=== PATIENT | male | born 1935 | race Caucasian/White ===

== ENCOUNTER 2018-01-12 13:16 | Inpatient (IN) ==
[2018-01-12] MEDS: PROPOFOL 1,000 MG/100 ML BOTTLE IV SCH (15:53)
[2018-01-12] MEDS ORDERED: ONDANSETRON 4 MG/2 ML VIAL IV PRN (15:53)
[2018-01-12] MEDS ORDERED: ALBUTEROL 2.5 MG/3 ML NEB RESP TX PRN (15:53)
[2018-01-12] MEDS ORDERED: ACETAMINOPHEN 325 MG TABLET PO PRN (15:53)
[2018-01-12 16:36] LABS: ABG Base Excess -5.3 MMOL/L (-2.5-2.5); ABG HCO3 20.2 MMOL/L (20-26); ABG Oxygen Saturation 99.6 % (95-100); ABG PCO2 45.2 MM HG (35-48); ABG PH 7.287 (7.35-7.45); ABG TCO2 18.9 MMOL/L (23-27); Pt O2 Delivery Device Ventilator
[2018-01-12] MEDS: SODIUM CHLORIDE 0.9% 1,000 ML IV SCH (16:59)
[2018-01-12] MEDS: PANTOPRAZOLE 40 MG VIAL IV SCH (17:00)
[2018-01-12] MEDS: ENOXAPARIN 80 MG/0.8 ML SYRINGE SUBCUT SCH (17:00)
[2018-01-12 17:28] LABS: Albumin 3.5 G/DL (3.4-5.0); Bilirubin,Total 1.5 MG/DL (0.2-1.0); Calcium 8.6 MG/DL (8.5-10.1); Osmolality,Calculated 291.1 MOS/KG (273-304); Potassium 4.1 MMOL/L (3.5-5.1); Total Protein 6.5 G/DL (6.4-8.3)
[2018-01-12 19:17] LABS: Apearance,Urine CLOUDY (Clear); Bilirubin,Urine Negative (Negative); Blood, Urine Large mg/dL (Negative); Glucose,Urine (UA) 50 mg/dL (Negative); Ketones,Urine 5 mg/dL (Negative); Mucus,Urine Occasional /LPF (Occasional); Nitrite,Urine Negative (Negative); Protein,Urine 100 MG/DL; RBC,Urine 27 /HPF (0-4); Squamous Epithelial Cell,Urine Occasional /HPF (0-10); Urine Color Amber (Yellow); Urine Specific Gravity 1.016 (1.001-1.035); Urine Urobilinogen < 2.0 EU/DL (0.2-1.0); WBC,Urine 3 /HPF (0-6)
[2018-01-12] MEDS ORDERED: ENOXAPARIN 30 MG/0.3 ML SYRINGE SUBCUT SCH (21:00)
[2018-01-12] MEDS: fentaNYL INJ 1,250 MCG in SODIUM CHLORIDE 0.9% 225 ML IV PRN (21:38)
[2018-01-13] MEDS: SODIUM CHLORIDE 0.9% 1,000 ML IV SCH ×5 (00:17→12:19)
[2018-01-13] MEDS ORDERED: SODIUM CHLORIDE 0.9% 1,000 ML IV ONE (00:17)
[2018-01-13] MEDS ORDERED: NOREPINEPHRINE 8 MG in SODIUM CHLORIDE 0.9% 242 ML IV PRN (00:18)
[2018-01-13 03:40] LABS: ABG Base Excess -2.7 MMOL/L (-2.5-2.5); ABG HCO3 22.2 MMOL/L (20-26); ABG Oxygen Saturation 98.9 % (95-100); ABG PCO2 46.4 MM HG (35-48); ABG PH 7.318 (7.35-7.45)
[2018-01-13] MEDS: ENOXAPARIN 80 MG/0.8 ML SYRINGE SUBCUT SCH ×2 (04:43→16:05)
[2018-01-13 05:29] LABS: Basophils % 0.2 % (0.0-0.8); Hematocrit 39.6 VOL% (42.0-52.0); Hemoglobin 12.9 GM/DL (14.0-18.0); Immature Granulocytes % 0.6 %; Immature Granulocytes Absolute 0.06 #; Lymphocytes % 10.7 % (21.2-54.2); Mean Corpuscular HGB Conc 32.6 GM/DL (32-36); Mean Corpuscular Hemoglobin 32 PG (27-34); Mean Corpuscular Volume 96.8 FL (87-102); Mean Platelet Volume 11.1 FL (9.6-12.0); Monocytes # 0.7 10*3/uL (0.11-0.8); Monocytes % 7.8 % (1.7-12.7); Neutrophils # 7.6 10*3/uL (1.4-7.4); Neutrophils % 80.7 % (38.7-73.9); Platelet Count 139 T/CUMM (130-400); Red Blood Count 4.09 MC/CUMM (3.8-5.5); Red Cell Distribution Width 13.3 % (9.3-17.3); White Blood Count 9.4 T/CUMM (4-12)
[2018-01-13 06:06] LABS: Albumin 2.9 G/DL (3.4-5.0); Bilirubin,Total 1.5 MG/DL (0.2-1.0); Calcium 7.7 MG/DL (8.5-10.1); Osmolality,Calculated 291.7 MOS/KG (273-304); Potassium 5.5 MMOL/L (3.5-5.1); Risk Ratio 4.08; Total Protein 5.9 G/DL (6.4-8.3); Troponin I Only 3.11 NG/ML (0.00-0.045); VLDL CHOLESTEROL 18.2 MG/DL
[2018-01-13 10:49] LABS: CKMB % 1.9 %
[2018-01-13 10:51] LABS: Troponin I Only 2.51 NG/ML (0.00-0.045)
[2018-01-13] MEDS: fentaNYL INJ 1,250 MCG in SODIUM CHLORIDE 0.9% 225 ML IV PRN (12:15)
[2018-01-13] MEDS: DEXTROSE 5% NACL 0.45% 1,000 ML IV SCH ×2 (12:22→22:37)
[2018-01-13] MEDS: ASPIRIN EC 81 MG TABLET PO SCH (12:26)
[2018-01-13] MEDS ORDERED: DEXTROSE 50% 25 GM/50 ML VIAL IV PRN (14:36)
[2018-01-13] MEDS ORDERED: GLUCAGON 1 MG VIAL IM PRN (14:36)
[2018-01-13 14:56] LABS: Calcium 7.4 MG/DL (8.5-10.1); Osmolality,Calculated 290.8 MOS/KG (273-304); Potassium 4.7 MMOL/L (3.5-5.1)
[2018-01-13] MEDS: PANTOPRAZOLE 40 MG VIAL IV SCH (16:03)
[2018-01-13] MEDS: PROPOFOL 1,000 MG/100 ML BOTTLE IV SCH (16:17)
[2018-01-13] MEDS: CLINDAMYCIN INJ 600 MG in PREMIX 1 EACH IV SCH (16:21)
[2018-01-13] MEDS: INSULIN REGULAR 100 UNIT/ML SUBCUT SCH (18:40)
[2018-01-14] MEDS: INSULIN REGULAR 100 UNIT/ML SUBCUT SCH ×2 (01:15→06:14)
[2018-01-14] MEDS: CLINDAMYCIN INJ 600 MG in PREMIX 1 EACH IV SCH ×3 (01:41→16:13)
[2018-01-14 04:14] LABS: ABG Base Excess -0.1 MMOL/L (-2.5-2.5); ABG HCO3 24.4 MMOL/L (20-26); ABG Oxygen Saturation 98.8 % (95-100); ABG PCO2 45.8 MM HG (35-48); ABG PH 7.358 (7.35-7.45); ABG TCO2 23.1 MMOL/L (23-27); Allen Test Positive; Pt O2 Delivery Device Ventilator
[2018-01-14] MEDS: fentaNYL INJ 1,250 MCG in SODIUM CHLORIDE 0.9% 225 ML IV PRN ×2 (04:39→20:06)
[2018-01-14 05:12] LABS: Basophils % 0.2 % (0.0-0.8); Eosinophils % 0.1 % (0.00-10.9); Hematocrit 33.8 VOL% (42.0-52.0); Hemoglobin 11.3 GM/DL (14.0-18.0); Immature Granulocytes % 0.4 %; Immature Granulocytes Absolute 0.03 #; Lymphocytes # 1.1 10*3/uL (1.4-4.0); Lymphocytes % 13.5 % (21.2-54.2); Mean Corpuscular HGB Conc 33.4 GM/DL (32-36); Mean Corpuscular Hemoglobin 32 PG (27-34); Mean Corpuscular Volume 96.6 FL (87-102); Mean Platelet Volume 11.8 FL (9.6-12.0); Monocytes # 0.8 10*3/uL (0.11-0.8); Monocytes % 9.8 % (1.7-12.7); Neutrophils # 6.2 10*3/uL (1.4-7.4); Platelet Count 124 T/CUMM (130-400); Red Cell Distribution Width 13.8 % (9.3-17.3); White Blood Count 8.2 T/CUMM (4-12)
[2018-01-14 05:42] LABS: Giant Platelets Few; Hypochromasia 1+; Lymphocytes 14 % (20-55); Ovalocytes Slight; Platelet Estimate Decreased; Segmented Neutrophils 78 % (50-85); Total Cells Counted 100
[2018-01-14 05:47] LABS: Albumin 2.6 G/DL (3.4-5.0); Bilirubin,Total 1.6 MG/DL (0.2-1.0); Calcium 7.6 MG/DL (8.5-10.1); Potassium 4.4 MMOL/L (3.5-5.1); Prealbumin 15.8 MG/DL (20-40); Total Protein 5.4 G/DL (6.4-8.3)
[2018-01-14] MEDS: ENOXAPARIN 80 MG/0.8 ML SYRINGE SUBCUT SCH ×2 (06:18→16:12)
[2018-01-14] MEDS: DEXTROSE 5% NACL 0.45% 1,000 ML IV SCH ×4 (08:01→16:45)
[2018-01-14] MEDS: ASPIRIN EC 81 MG TABLET PO SCH (11:05)
[2018-01-14] MEDS: PANTOPRAZOLE 40 MG VIAL IV SCH (16:00)
[2018-01-14] MEDS: PROPOFOL 1,000 MG/100 ML BOTTLE IV SCH (16:46)
[2018-01-14] MEDS: CARVEDILOL 3.125 MG TABLET PO SCH (20:15)
[2018-01-15] MEDS: CLINDAMYCIN INJ 600 MG in PREMIX 1 EACH IV SCH ×3 (00:50→17:18)
[2018-01-15] MEDS: DEXTROSE 5% NACL 0.45% 1,000 ML IV SCH ×5 (02:53→22:55)
[2018-01-15] MEDS: PROPOFOL 1,000 MG/100 ML BOTTLE IV SCH ×2 (03:31→15:52)
[2018-01-15] MEDS: ENOXAPARIN 80 MG/0.8 ML SYRINGE SUBCUT SCH ×2 (04:39→17:12)
[2018-01-15 06:07] LABS: Basophils % 0.2 % (0.0-0.8); Eosinophils # 0.1 10*3/uL (0.0-0.87); Eosinophils % 0.6 % (0.00-10.9); Hemoglobin 11.4 GM/DL (14.0-18.0); Immature Granulocytes % 0.6 %; Immature Granulocytes Absolute 0.05 #; Lymphocytes # 1.4 10*3/uL (1.4-4.0); Lymphocytes % 17.2 % (21.2-54.2); Mean Corpuscular HGB Conc 31.7 GM/DL (32-36); Mean Corpuscular Hemoglobin 32 PG (27-34); Mean Corpuscular Volume 100.6 FL (87-102); Mean Platelet Volume 12.2 FL (9.6-12.0); Monocytes # 0.8 10*3/uL (0.11-0.8); Monocytes % 10.4 % (1.7-12.7); Neutrophils # 5.8 10*3/uL (1.4-7.4); Platelet Count 105 T/CUMM (130-400); Red Blood Count 3.58 MC/CUMM (3.8-5.5); Red Cell Distribution Width 13.2 % (9.3-17.3); White Blood Count 8.1 T/CUMM (4-12)
[2018-01-15 06:46] LABS: Albumin 2.5 G/DL (3.4-5.0); Bilirubin,Total 1.7 MG/DL (0.2-1.0); Calcium 7.7 MG/DL (8.5-10.1); Osmolality,Calculated 282.3 MOS/KG (273-304); Potassium 4.1 MMOL/L (3.5-5.1); Total Protein 5.4 G/DL (6.4-8.3)
[2018-01-15] MEDS: ASPIRIN EC 81 MG TABLET PO SCH (08:40)
[2018-01-15] MEDS: CARVEDILOL 3.125 MG TABLET PO SCH ×2 (12:34→22:25)
[2018-01-15] MEDS ORDERED: hydrALAZINE 20 MG/1 ML VIAL IV PRN (12:36)
[2018-01-15] MEDS: PANTOPRAZOLE 40 MG VIAL IV SCH (17:11)
[2018-01-16] MEDS: CLINDAMYCIN INJ 600 MG in PREMIX 1 EACH IV SCH ×3 (00:34→15:50)
[2018-01-16 03:45] LABS: ABG Base Excess 0.7 MMOL/L (-2.5-2.5); ABG HCO3 25.1 MMOL/L (20-26); ABG Oxygen Saturation 99.4 % (95-100); ABG PH 7.402 (7.35-7.45); ABG TCO2 23.1 MMOL/L (23-27); Allen Test Positive; Pt O2 Delivery Device Ventilator
[2018-01-16] MEDS: PROPOFOL 1,000 MG/100 ML BOTTLE IV SCH ×3 (03:51→20:17)
[2018-01-16] MEDS: ENOXAPARIN 80 MG/0.8 ML SYRINGE SUBCUT SCH ×2 (04:33→15:51)
[2018-01-16 04:39] LABS: Basophils % 0.4 % (0.0-0.8); Eosinophils # 0.1 10*3/uL (0.0-0.87); Eosinophils % 1.2 % (0.00-10.9); Hematocrit 31.9 VOL% (42.0-52.0); Hemoglobin 10.9 GM/DL (14.0-18.0); Immature Granulocytes % 0.7 %; Immature Granulocytes Absolute 0.04 #; Lymphocytes # 1.1 10*3/uL (1.4-4.0); Lymphocytes % 19.6 % (21.2-54.2); Mean Corpuscular HGB Conc 34.2 GM/DL (32-36); Mean Corpuscular Hemoglobin 32 PG (27-34); Mean Corpuscular Volume 94.9 FL (87-102); Mean Platelet Volume 12.7 FL (9.6-12.0); Monocytes # 0.8 10*3/uL (0.11-0.8); Monocytes % 14.4 % (1.7-12.7); Neutrophils # 3.6 10*3/uL (1.4-7.4); Neutrophils % 63.7 % (38.7-73.9); Red Blood Count 3.36 MC/CUMM (3.8-5.5); Red Cell Distribution Width 13.2 % (9.3-17.3); White Blood Count 5.7 T/CUMM (4-12)
[2018-01-16 05:01] LABS: Platelet Count 95 T/CUMM (130-400)
[2018-01-16 05:06] LABS: Albumin 2.2 G/DL (3.4-5.0); Bilirubin,Direct 0.9 MG/DL (0.0-0.20); Bilirubin,Indirect 1.2 MG/DL (0.0-1.0); Bilirubin,Total 2.1 MG/DL (0.2-1.0); Calcium 7.9 MG/DL (8.5-10.1); Osmolality,Calculated 283.1 MOS/KG (273-304); Potassium 3.5 MMOL/L (3.5-5.1); Total Protein 5.3 G/DL (6.4-8.3)
[2018-01-16] MEDS: ASPIRIN EC 81 MG TABLET PO SCH (09:02)
[2018-01-16] MEDS: CARVEDILOL 3.125 MG TABLET PO SCH (09:02)
[2018-01-16] MEDS: DEXTROSE 5% NACL 0.45% 1,000 ML IV SCH ×3 (09:03→20:27)
[2018-01-16] MEDS ORDERED: ATORVASTATIN 20 MG TABLET PO SCH (13:30)
[2018-01-16] MEDS: PANTOPRAZOLE 40 MG VIAL IV SCH (15:50)
[2018-01-16] MEDS: ATORVASTATIN 20 MG TABLET PO SCH (21:11)
[2018-01-17] MEDS: CLINDAMYCIN INJ 600 MG in PREMIX 1 EACH IV SCH ×3 (00:34→17:03)
[2018-01-17 03:39] LABS: ABG Base Excess 3.1 MMOL/L (-2.5-2.5); ABG HCO3 27.8 MMOL/L (20-26); ABG Oxygen Saturation 98.4 % (95-100); ABG PCO2 42.7 MM HG (35-48); ABG PH 7.431 (7.35-7.45); ABG PO2 151.1 MM HG (80-95); ABG TCO2 29.1 MMOL/L (23-27)
[2018-01-17] MEDS: DEXTROSE 5% NACL 0.45% 1,000 ML IV SCH ×4 (04:06→20:46)
[2018-01-17] MEDS: ENOXAPARIN 80 MG/0.8 ML SYRINGE SUBCUT SCH ×2 (05:07→17:03)
[2018-01-17] MEDS: PROPOFOL 1,000 MG/100 ML BOTTLE IV SCH ×4 (05:27→20:46)
[2018-01-17 06:06] LABS: Basophils % 0.8 % (0.0-0.8); Eosinophils # 0.2 10*3/uL (0.0-0.87); Eosinophils % 4.1 % (0.00-10.9); Hematocrit 30.3 VOL% (42.0-52.0); Hemoglobin 10.8 GM/DL (14.0-18.0); Immature Granulocytes % 4.1 %; Immature Granulocytes Absolute 0.21 #; Lymphocytes # 0.6 10*3/uL (1.4-4.0); Lymphocytes % 11.5 % (21.2-54.2); Mean Corpuscular HGB Conc 35.6 GM/DL (32-36); Mean Corpuscular Hemoglobin 33 PG (27-34); Mean Corpuscular Volume 93.2 FL (87-102); Mean Platelet Volume 11.8 FL (9.6-12.0); Monocytes # 0.8 10*3/uL (0.11-0.8); Monocytes % 14.6 % (1.7-12.7); Neutrophils # 3.4 10*3/uL (1.4-7.4); Neutrophils % 64.9 % (38.7-73.9); Platelet Count 173 T/CUMM (130-400); Red Blood Count 3.25 MC/CUMM (3.8-5.5); Red Cell Distribution Width 13.2 % (9.3-17.3); White Blood Count 5.2 T/CUMM (4-12)
[2018-01-17 06:40] LABS: Band Neutrophils 3 % (0-10); Eosinophils 2 % (0-10); Hypochromasia 1+; Lymphocytes 12 % (20-55); Myelocytes 2 %; Ovalocytes Slight; Platelet Estimate Normal; Segmented Neutrophils 69 % (50-85); Total Cells Counted 100
[2018-01-17 06:55] LABS: Calcium 7.5 MG/DL (8.5-10.1); Potassium 3.4 MMOL/L (3.5-5.1)
[2018-01-17] MEDS: LEVOFLOXACIN INJ 500 MG in PREMIX 1 EACH IV SCH (09:19)
[2018-01-17 09:20] LABS: ABG Base Excess 2.7 MMOL/L (-2.5-2.5); ABG HCO3 26.8 MMOL/L (20-26); ABG Oxygen Saturation 99.2 % (95-100); ABG PCO2 42.8 MM HG (35-48); ABG PH 7.417 (7.35-7.45); ABG TCO2 24.7 MMOL/L (23-27); Allen Test Positive; Pt O2 Delivery Device CPAP
[2018-01-17] MEDS: ASPIRIN EC 81 MG TABLET PO SCH (09:21)
[2018-01-17] MEDS ORDERED: POTASSIUM CHLORIDE RIDER 10 MEQ in PREMIX 1 EACH IV PRN (10:24)
[2018-01-17] MEDS ORDERED: MAGNESIUM SULF RIDER 2 GM in PREMIX 1 EACH IV PRN (10:24)
[2018-01-17] MEDS ORDERED: RACEPINEPHRINE 0.5 ML NEB RESP TX ONE (10:33)
[2018-01-17 10:57] LABS: ABG Base Excess 3.1 MMOL/L (-2.5-2.5); ABG HCO3 29.8 MMOL/L (20-26); ABG Oxygen Saturation 98.9 % (95-100); ABG PCO2 55.8 MM HG (35-48); ABG PH 7.346 (7.35-7.45); ABG PO2 197.4 MM HG (80-95); ABG TCO2 31.6 MMOL/L (23-27)
[2018-01-17] MEDS ORDERED: methylPREDNISolone SOD SUC 40 MG/1 ML VIAL IV ONE (11:25)
[2018-01-17] MEDS ORDERED: MIDAZOLAM 10 MG/2 ML VIAL ONE (11:30)
[2018-01-17] MEDS ORDERED: MIDAZOLAM 10 MG/2 ML VIAL IV ONE (11:42)
[2018-01-17] MEDS ORDERED: LIDOCAINE 1% 20 ML VIAL MISC INJ ONE (11:50)
[2018-01-17] MEDS: VALSARTAN 80 MG TABLET PO SCH ×2 (13:39→21:19)
[2018-01-17 13:43] LABS: ABG HCO3 27.1 MMOL/L (20-26); ABG Oxygen Saturation 99.3 % (95-100); ABG PCO2 45.6 MM HG (35-48); ABG PH 7.402 (7.35-7.45); ABG TCO2 25.5 MMOL/L (23-27); Allen Test Positive; Pt O2 Delivery Device Ventilator
[2018-01-17] MEDS: PANTOPRAZOLE 40 MG VIAL IV SCH (17:03)
[2018-01-17] MEDS: methylPREDNISolone SOD SUC 40 MG/1 ML VIAL IV SCH (17:03)
[2018-01-17] MEDS: ATORVASTATIN 20 MG TABLET PO SCH (21:19)
[2018-01-18] MEDS: DEXTROSE 5% NACL 0.45% 1,000 ML IV SCH ×5 (00:24→19:32)
[2018-01-18] MEDS: methylPREDNISolone SOD SUC 40 MG/1 ML VIAL IV SCH ×5 (00:30→23:48)
[2018-01-18] MEDS: CLINDAMYCIN INJ 600 MG in PREMIX 1 EACH IV SCH ×4 (00:32→23:52)
[2018-01-18] MEDS: PROPOFOL 1,000 MG/100 ML BOTTLE IV SCH ×5 (02:31→21:38)
[2018-01-18 03:20] LABS: Basophils % 0.3 % (0.0-0.8); Hemoglobin 10.3 GM/DL (14.0-18.0); Immature Granulocytes % 4.1 %; Immature Granulocytes Absolute 0.31 #; Lymphocytes # 0.6 10*3/uL (1.4-4.0); Mean Corpuscular HGB Conc 33.2 GM/DL (32-36); Mean Corpuscular Hemoglobin 32 PG (27-34); Mean Corpuscular Volume 95.1 FL (87-102); Mean Platelet Volume 11.7 FL (9.6-12.0); Monocytes # 0.3 10*3/uL (0.11-0.8); Monocytes % 3.5 % (1.7-12.7); Neutrophils # 6.3 10*3/uL (1.4-7.4); Neutrophils % 84.1 % (38.7-73.9); Platelet Count 183 T/CUMM (130-400); Red Blood Count 3.26 MC/CUMM (3.8-5.5); Red Cell Distribution Width 12.9 % (9.3-17.3); White Blood Count 7.5 T/CUMM (4-12)
[2018-01-18 03:48] LABS: Calcium 7.9 MG/DL (8.5-10.1); Osmolality,Calculated 291.1 MOS/KG (273-304); Potassium 3.7 MMOL/L (3.5-5.1)
[2018-01-18 04:28] LABS: ABG Base Excess 2.2 MMOL/L (-2.5-2.5); ABG HCO3 26.4 MMOL/L (20-26); ABG PH 7.401 (7.35-7.45); ABG TCO2 24.5 MMOL/L (23-27)
[2018-01-18 04:31] LABS: Prealbumin 10.4 MG/DL (20-40)
[2018-01-18 04:42] LABS: Lymphocytes 6 % (20-55); Segmented Neutrophils 88 % (50-85); Total Cells Counted 100
[2018-01-18 04:43] LABS: Giant Platelets Few; Hypochromasia 1+; Ovalocytes Slight; Platelet Estimate Normal; Polychromasia Few
[2018-01-18] MEDS: ENOXAPARIN 80 MG/0.8 ML SYRINGE SUBCUT SCH ×2 (05:34→16:27)
[2018-01-18] MEDS: amLODIPine 2.5 MG TABLET PO SCH (10:33)
[2018-01-18] MEDS: ASPIRIN EC 81 MG TABLET PO SCH (10:34)
[2018-01-18] MEDS: LEVOFLOXACIN INJ 500 MG in PREMIX 1 EACH IV SCH (10:34)
[2018-01-18] MEDS: VALSARTAN 80 MG TABLET PO SCH ×2 (10:52→21:04)
[2018-01-18] MEDS: INSULIN REGULAR 100 UNIT/ML SUBCUT SCH ×3 (12:56→23:50)
[2018-01-18] MEDS: PANTOPRAZOLE 40 MG VIAL IV SCH (16:27)
[2018-01-18] MEDS: ATORVASTATIN 20 MG TABLET PO SCH (21:04)
[2018-01-19] MEDS: DEXTROSE 5% NACL 0.45% 1,000 ML IV SCH ×5 (02:38→22:00)
[2018-01-19] MEDS: PROPOFOL 1,000 MG/100 ML BOTTLE IV SCH ×5 (02:38→19:59)
[2018-01-19 04:34] LABS: Allen Test Positive; Pt O2 Delivery Device Ventilator
[2018-01-19 04:35] LABS: ABG Base Excess 5.1 MMOL/L (-2.5-2.5); ABG HCO3 30.2 MMOL/L (20-26); ABG Oxygen Saturation 98.4 % (95-100); ABG PCO2 46.8 MM HG (35-48); ABG PH 7.428 (7.35-7.45); ABG PO2 145.3 MM HG (80-95); ABG TCO2 31.7 MMOL/L (23-27)
[2018-01-19 04:46] LABS: Basophils % 0.3 % (0.0-0.8); Hematocrit 30.9 VOL% (42.0-52.0); Hemoglobin 10.5 GM/DL (14.0-18.0); Immature Granulocytes % 6.2 %; Lymphocytes # 0.8 10*3/uL (1.4-4.0); Lymphocytes % 5.8 % (21.2-54.2); Mean Corpuscular Hemoglobin 32 PG (27-34); Mean Corpuscular Volume 92.8 FL (87-102); Mean Platelet Volume 11.7 FL (9.6-12.0); Monocytes # 0.9 10*3/uL (0.11-0.8); Monocytes % 6.9 % (1.7-12.7); Neutrophils # 10.5 10*3/uL (1.4-7.4); Neutrophils % 80.8 % (38.7-73.9); Platelet Count 242 T/CUMM (130-400); Red Blood Count 3.33 MC/CUMM (3.8-5.5); Red Cell Distribution Width 13.3 % (9.3-17.3)
[2018-01-19 05:10] LABS: Band Neutrophils 3 % (0-10); Lymphocytes 3 % (20-55); Platelet Estimate Adequate; Segmented Neutrophils 91 % (50-85); Total Cells Counted 100
[2018-01-19 05:11] LABS: Giant Platelets Few; Hypochromasia 1+; Ovalocytes Slight
[2018-01-19 05:22] LABS: Calcium 7.7 MG/DL (8.5-10.1)
[2018-01-19] MEDS: INSULIN REGULAR 100 UNIT/ML SUBCUT SCH ×3 (05:51→18:03)
[2018-01-19] MEDS: ENOXAPARIN 80 MG/0.8 ML SYRINGE SUBCUT SCH (05:51)
[2018-01-19] MEDS: methylPREDNISolone SOD SUC 40 MG/1 ML VIAL IV SCH ×3 (05:52→18:05)
[2018-01-19] MEDS: LEVOFLOXACIN INJ 500 MG in PREMIX 1 EACH IV SCH (08:49)
[2018-01-19] MEDS: ASPIRIN EC 81 MG TABLET PO SCH (08:54)
[2018-01-19] MEDS: VALSARTAN 80 MG TABLET PO SCH ×2 (08:54→20:01)
[2018-01-19] MEDS: MULTIVITAMIN LIQUID (CENTRUM) 60 ML BOTTLE PO SCH (08:54)
[2018-01-19] MEDS: amLODIPine 2.5 MG TABLET PO SCH (08:54)
[2018-01-19] MEDS: CLINDAMYCIN INJ 600 MG in PREMIX 1 EACH IV SCH ×2 (09:50→16:06)
[2018-01-19] MEDS ORDERED: HEPARIN/NACL 0.9% 2 UNITS/ML 1,000 ML IV ONE (11:53)
[2018-01-19] MEDS ORDERED: ACETAMINOPHEN/CODEINE 300-30 MG TABLET PO PRN (13:56)
[2018-01-19] MEDS ORDERED: MORPHINE 4 MG/1 ML VIAL IV PRN (13:56)
[2018-01-19] MEDS: PANTOPRAZOLE 40 MG VIAL IV SCH (15:31)
[2018-01-19] MEDS: ROSUVASTATIN 20 MG TABLET PO SCH (20:01)
[2018-01-19] MEDS: ATORVASTATIN 20 MG TABLET PO SCH (20:02)
[2018-01-20] MEDS: CLINDAMYCIN INJ 600 MG in PREMIX 1 EACH IV SCH ×3 (00:14→16:20)
[2018-01-20] MEDS: methylPREDNISolone SOD SUC 40 MG/1 ML VIAL IV SCH ×3 (00:14→12:04)
[2018-01-20] MEDS: INSULIN REGULAR 100 UNIT/ML SUBCUT SCH ×4 (00:14→17:22)
[2018-01-20] MEDS: PROPOFOL 1,000 MG/100 ML BOTTLE IV SCH ×4 (00:21→23:02)
[2018-01-20 04:23] LABS: ABG Base Excess 5.2 MMOL/L (-2.5-2.5); ABG HCO3 29.1 MMOL/L (20-26); ABG Oxygen Saturation 97.4 % (95-100); ABG PCO2 44.2 MM HG (35-48); ABG TCO2 26.9 MMOL/L (23-27); Allen Test Positive; Pt O2 Delivery Device Ventilator
[2018-01-20] MEDS: ENOXAPARIN 80 MG/0.8 ML SYRINGE SUBCUT SCH ×2 (04:42→16:21)
[2018-01-20 05:25] LABS: Basophils # 0.1 10*3/uL (0.0-0.2); Basophils % 0.8 % (0.0-0.8); Hematocrit 33.7 VOL% (42.0-52.0); Hemoglobin 11.4 GM/DL (14.0-18.0); Immature Granulocytes % 9.5 %; Immature Granulocytes Absolute 1.16 #; Lymphocytes # 1.1 10*3/uL (1.4-4.0); Lymphocytes % 9.2 % (21.2-54.2); Mean Corpuscular HGB Conc 33.8 GM/DL (32-36); Mean Corpuscular Hemoglobin 32 PG (27-34); Mean Corpuscular Volume 94.4 FL (87-102); Mean Platelet Volume 11.7 FL (9.6-12.0); Monocytes # 0.9 10*3/uL (0.11-0.8); Monocytes % 7.3 % (1.7-12.7); NRBC # 0.02 10*3/uL; Neutrophils # 8.9 10*3/uL (1.4-7.4); Neutrophils % 73.2 % (38.7-73.9); Platelet Count 261 T/CUMM (130-400); Red Blood Count 3.57 MC/CUMM (3.8-5.5); Red Cell Distribution Width 13.2 % (9.3-17.3); White Blood Count 12.2 T/CUMM (4-12)
[2018-01-20 05:44] LABS: Band Neutrophils 5 % (0-10); Lymphocytes 11 % (20-55); Segmented Neutrophils 78 % (50-85); Total Cells Counted 100
[2018-01-20 05:45] LABS: Giant Platelets Few; Hypochromasia 1+; Ovalocytes Slight; Platelet Estimate Adequate
[2018-01-20 05:50] LABS: Calcium 7.7 MG/DL (8.5-10.1)
[2018-01-20 05:51] LABS: Osmolality,Calculated 293.1 MOS/KG (273-304); Potassium 4.4 MMOL/L (3.5-5.1)
[2018-01-20] MEDS: ASPIRIN EC 81 MG TABLET PO SCH (08:04)
[2018-01-20] MEDS: VALSARTAN 80 MG TABLET PO SCH ×2 (08:04→20:26)
[2018-01-20] MEDS: amLODIPine 2.5 MG TABLET PO SCH (08:04)
[2018-01-20] MEDS: DEXTROSE 5% NACL 0.45% 1,000 ML IV SCH ×2 (08:05→18:14)
[2018-01-20] MEDS: MULTIVITAMIN LIQUID (CENTRUM) 60 ML BOTTLE PO SCH (08:05)
[2018-01-20] MEDS: LEVOFLOXACIN INJ 500 MG in PREMIX 1 EACH IV SCH (08:06)
[2018-01-20] MEDS: PANTOPRAZOLE 40 MG VIAL IV SCH (16:21)
[2018-01-20] MEDS: ROSUVASTATIN 20 MG TABLET PO SCH (20:26)
[2018-01-21] MEDS: INSULIN REGULAR 100 UNIT/ML SUBCUT SCH ×4 (00:21→17:17)
[2018-01-21] MEDS: CLINDAMYCIN INJ 600 MG in PREMIX 1 EACH IV SCH ×3 (00:21→16:09)
[2018-01-21 03:50] LABS: ABG HCO3 31.6 MMOL/L (20-26); ABG Oxygen Saturation 98.3 % (95-100); ABG PCO2 45.2 MM HG (35-48); ABG PH 7.463 (7.35-7.45); ABG PO2 133.8 MM HG (80-95); Allen Test Positive; Pt O2 Delivery Device Ventilator
[2018-01-21] MEDS: DEXTROSE 5% NACL 0.45% 1,000 ML IV SCH ×3 (04:47→16:08)
[2018-01-21] MEDS: ENOXAPARIN 80 MG/0.8 ML SYRINGE SUBCUT SCH ×2 (05:52→16:10)
[2018-01-21 06:58] LABS: Prealbumin 22.1 MG/DL (20-40)
[2018-01-21] MEDS: VALSARTAN 80 MG TABLET PO SCH ×2 (08:19→21:03)
[2018-01-21] MEDS: LEVOFLOXACIN INJ 500 MG in PREMIX 1 EACH IV SCH (08:19)
[2018-01-21] MEDS: amLODIPine 5 MG TABLET PO SCH (08:20)
[2018-01-21] MEDS: MULTIVITAMIN LIQUID (CENTRUM) 60 ML BOTTLE PO SCH (08:20)
[2018-01-21] MEDS: ASPIRIN EC 81 MG TABLET PO SCH (08:20)
[2018-01-21] MEDS: FLUCONAZOLE INJ 200 MG in PREMIX 1 EACH IV SCH (16:08)
[2018-01-21] MEDS: PANTOPRAZOLE 40 MG VIAL IV SCH (16:09)
[2018-01-21] MEDS: PROPOFOL 1,000 MG/100 ML BOTTLE IV SCH (16:09)
[2018-01-21] MEDS: ROSUVASTATIN 20 MG TABLET PO SCH (21:03)
[2018-01-22] MEDS: INSULIN REGULAR 100 UNIT/ML SUBCUT SCH ×3 (01:02→12:17)
[2018-01-22] MEDS: CLINDAMYCIN INJ 600 MG in PREMIX 1 EACH IV SCH ×3 (01:03→16:10)
[2018-01-22] MEDS: DEXTROSE 5% NACL 0.45% 1,000 ML IV SCH ×5 (01:04→20:52)
[2018-01-22 04:36] LABS: Basophils # 0.1 10*3/uL (0.0-0.2); Basophils % 0.5 % (0.0-0.8); Eosinophils # 0.1 10*3/uL (0.0-0.87); Hematocrit 36.7 VOL% (42.0-52.0); Hemoglobin 12.6 GM/DL (14.0-18.0); Immature Granulocytes % 7.3 %; Immature Granulocytes Absolute 0.95 #; Lymphocytes # 1.4 10*3/uL (1.4-4.0); Lymphocytes % 10.5 % (21.2-54.2); Mean Corpuscular HGB Conc 34.3 GM/DL (32-36); Mean Corpuscular Hemoglobin 32 PG (27-34); Mean Corpuscular Volume 91.8 FL (87-102); Mean Platelet Volume 10.9 FL (9.6-12.0); Monocytes % 7.3 % (1.7-12.7); NRBC # 0.02 10*3/uL; Neutrophils # 9.5 10*3/uL (1.4-7.4); Neutrophils % 73.4 % (38.7-73.9); Platelet Count 318 T/CUMM (130-400); Red Cell Distribution Width 13.1 % (9.3-17.3)
[2018-01-22 05:02] LABS: Giant Platelets Few; Hypochromasia 1+; Lymphocytes 10 % (20-55); Platelet Estimate Adequate; Segmented Neutrophils 82 % (50-85); Total Cells Counted 100
[2018-01-22 05:03] LABS: Calcium 7.6 MG/DL (8.5-10.1); Osmolality,Calculated 286.1 MOS/KG (273-304); Potassium 4.2 MMOL/L (3.5-5.1)
[2018-01-22] MEDS: ENOXAPARIN 80 MG/0.8 ML SYRINGE SUBCUT SCH (05:55)
[2018-01-22] MEDS: ASPIRIN EC 81 MG TABLET PO SCH (08:32)
[2018-01-22] MEDS: VALSARTAN 80 MG TABLET PO SCH ×2 (08:32→20:42)
[2018-01-22] MEDS: MULTIVITAMIN LIQUID (CENTRUM) 60 ML BOTTLE PO SCH (08:33)
[2018-01-22] MEDS: amLODIPine 5 MG TABLET PO SCH (08:33)
[2018-01-22] MEDS: LEVOFLOXACIN INJ 500 MG in PREMIX 1 EACH IV SCH (08:34)
[2018-01-22] MEDS: FLUCONAZOLE INJ 200 MG in PREMIX 1 EACH IV SCH (15:00)
[2018-01-22] MEDS: PANTOPRAZOLE 40 MG VIAL IV SCH (15:55)
[2018-01-22] MEDS: APIXABAN 5 MG TABLET PO SCH (20:42)
[2018-01-22] MEDS: ROSUVASTATIN 20 MG TABLET PO SCH (20:42)
[2018-01-23] MEDS: CLINDAMYCIN INJ 600 MG in PREMIX 1 EACH IV SCH ×3 (00:47→18:02)
[2018-01-23 04:45] LABS: Basophils % 0.3 % (0.0-0.8); Eosinophils # 0.2 10*3/uL (0.0-0.87); Hematocrit 36.1 VOL% (42.0-52.0); Hemoglobin 12.4 GM/DL (14.0-18.0); Immature Granulocytes % 4.4 %; Immature Granulocytes Absolute 0.49 #; Lymphocytes # 1.1 10*3/uL (1.4-4.0); Lymphocytes % 10.1 % (21.2-54.2); Mean Corpuscular HGB Conc 34.3 GM/DL (32-36); Mean Corpuscular Hemoglobin 32 PG (27-34); Mean Corpuscular Volume 92.3 FL (87-102); Mean Platelet Volume 10.9 FL (9.6-12.0); Monocytes # 0.8 10*3/uL (0.11-0.8); Neutrophils # 8.6 10*3/uL (1.4-7.4); Neutrophils % 76.2 % (38.7-73.9); Platelet Count 324 T/CUMM (130-400); Red Blood Count 3.91 MC/CUMM (3.8-5.5); White Blood Count 11.2 T/CUMM (4-12)
[2018-01-23] MEDS ORDERED: LACTULOSE 20 GM/30 ML UDCUP PO PRN (05:19)
[2018-01-23] MEDS: LEVOFLOXACIN INJ 500 MG in PREMIX 1 EACH IV SCH (06:45)
[2018-01-23] MEDS: DEXTROSE 5% NACL 0.45% 1,000 ML IV SCH (07:04)
[2018-01-23] MEDS: VALSARTAN 80 MG TABLET PO SCH ×2 (09:03→20:55)
[2018-01-23] MEDS: amLODIPine 5 MG TABLET PO SCH (09:04)
[2018-01-23] MEDS: APIXABAN 5 MG TABLET PO SCH ×2 (09:04→20:55)
[2018-01-23] MEDS: ASPIRIN EC 81 MG TABLET PO SCH (09:04)
[2018-01-23] MEDS: MULTIVITAMIN LIQUID (CENTRUM) 60 ML BOTTLE PO SCH (09:14)
[2018-01-23] MEDS: PANTOPRAZOLE 40 MG VIAL IV SCH (16:43)
[2018-01-23] MEDS: FLUCONAZOLE INJ 200 MG in PREMIX 1 EACH IV SCH (17:04)
[2018-01-23] MEDS: ROSUVASTATIN 20 MG TABLET PO SCH (20:55)
[2018-01-24] MEDS ORDERED: HALOPERIDOL 5 MG/ML AMP IV ONE (00:30)
[2018-01-24] MEDS: CLINDAMYCIN INJ 600 MG in PREMIX 1 EACH IV SCH ×3 (00:36→17:45)
[2018-01-24 00:58] LABS: ABG Base Excess 3.5 MMOL/L (-2.5-2.5); ABG HCO3 27.5 MMOL/L (20-26); ABG Oxygen Saturation 96.2 % (95-100); ABG PCO2 39.2 MM HG (35-48); ABG PH 7.455 (7.35-7.45); ABG PO2 83.9 MM HG (80-95); Allen Test Positive
[2018-01-24 05:11] LABS: Basophils # 0.1 10*3/uL (0.0-0.2); Basophils % 0.4 % (0.0-0.8); Eosinophils # 0.3 10*3/uL (0.0-0.87); Eosinophils % 2.3 % (0.00-10.9); Hematocrit 39.6 VOL% (42.0-52.0); Hemoglobin 13.3 GM/DL (14.0-18.0); Immature Granulocytes Absolute 0.45 #; Lymphocytes # 1.3 10*3/uL (1.4-4.0); Lymphocytes % 11.6 % (21.2-54.2); Mean Corpuscular HGB Conc 33.6 GM/DL (32-36); Mean Corpuscular Hemoglobin 31 PG (27-34); Mean Corpuscular Volume 93.6 FL (87-102); Mean Platelet Volume 10.8 FL (9.6-12.0); Monocytes # 0.8 10*3/uL (0.11-0.8); Monocytes % 7.1 % (1.7-12.7); Neutrophils # 8.4 10*3/uL (1.4-7.4); Neutrophils % 74.6 % (38.7-73.9); Platelet Count 379 T/CUMM (130-400); Red Blood Count 4.23 MC/CUMM (3.8-5.5); Red Cell Distribution Width 12.7 % (9.3-17.3); White Blood Count 11.3 T/CUMM (4-12)
[2018-01-24 05:30] LABS: Osmolality,Calculated 279.5 MOS/KG (273-304); Potassium 4.4 MMOL/L (3.5-5.1)
[2018-01-24] MEDS: LEVOFLOXACIN INJ 500 MG in PREMIX 1 EACH IV SCH (06:34)
[2018-01-24] MEDS: VALSARTAN 80 MG TABLET PO SCH ×2 (09:35→22:06)
[2018-01-24] MEDS: APIXABAN 5 MG TABLET PO SCH ×2 (09:35→22:06)
[2018-01-24] MEDS: amLODIPine 5 MG TABLET PO SCH (09:35)
[2018-01-24] MEDS: ASPIRIN EC 81 MG TABLET PO SCH (09:35)
[2018-01-24] MEDS: MULTIVITAMIN LIQUID (CENTRUM) 60 ML BOTTLE PO SCH (09:35)
[2018-01-24] MEDS: PANTOPRAZOLE 40 MG VIAL IV SCH (16:28)
[2018-01-24] MEDS: FLUCONAZOLE INJ 200 MG in PREMIX 1 EACH IV SCH (16:30)
[2018-01-24] MEDS: ROSUVASTATIN 20 MG TABLET PO SCH (22:06)
[2018-01-25] MEDS: CLINDAMYCIN INJ 600 MG in PREMIX 1 EACH IV SCH (00:30)
[2018-01-25 05:14] LABS: Basophils % 0.3 % (0.0-0.8); Eosinophils # 0.3 10*3/uL (0.0-0.87); Eosinophils % 2.5 % (0.00-10.9); Hematocrit 37.9 VOL% (42.0-52.0); Hemoglobin 13.2 GM/DL (14.0-18.0); Immature Granulocytes % 2.4 %; Immature Granulocytes Absolute 0.24 #; Lymphocytes # 1.1 10*3/uL (1.4-4.0); Lymphocytes % 11.4 % (21.2-54.2); Mean Corpuscular HGB Conc 34.8 GM/DL (32-36); Mean Corpuscular Hemoglobin 31 PG (27-34); Mean Corpuscular Volume 90.2 FL (87-102); Mean Platelet Volume 10.8 FL (9.6-12.0); Monocytes # 0.9 10*3/uL (0.11-0.8); Monocytes % 8.7 % (1.7-12.7); Neutrophils # 7.5 10*3/uL (1.4-7.4); Neutrophils % 74.7 % (38.7-73.9); Platelet Count 426 T/CUMM (130-400); Red Cell Distribution Width 12.9 % (9.3-17.3)
[2018-01-25 05:40] LABS: Calcium 8.1 MG/DL (8.5-10.1); Osmolality,Calculated 278.7 MOS/KG (273-304); Potassium 4.4 MMOL/L (3.5-5.1)
[2018-01-25] MEDS: AMOXICILLIN/CLAV 500 MG TABLET PO SCH ×2 (09:48→21:44)
[2018-01-25] MEDS: VALSARTAN 80 MG TABLET PO SCH ×2 (09:48→21:43)
[2018-01-25] MEDS: ASPIRIN EC 81 MG TABLET PO SCH (09:49)
[2018-01-25] MEDS: MULTIVITAMIN LIQUID (CENTRUM) 60 ML BOTTLE PO SCH (09:49)
[2018-01-25] MEDS: amLODIPine 5 MG TABLET PO SCH (09:49)
[2018-01-25] MEDS: APIXABAN 5 MG TABLET PO SCH ×2 (09:49→21:44)
[2018-01-25] MEDS: PANTOPRAZOLE 40 MG VIAL IV SCH (15:33)
[2018-01-25] MEDS: FLUCONAZOLE INJ 200 MG in PREMIX 1 EACH IV SCH (15:42)
[2018-01-25] MEDS: ROSUVASTATIN 20 MG TABLET PO SCH (21:43)
[2018-01-26] MEDS ORDERED: HALOPERIDOL 1 MG TABLET PO SCH (09:00)
[2018-01-26] MEDS: VALSARTAN 80 MG TABLET PO SCH (09:48)
[2018-01-26] MEDS: APIXABAN 5 MG TABLET PO SCH (09:49)
[2018-01-26] MEDS: ASPIRIN EC 81 MG TABLET PO SCH (09:49)
[2018-01-26] MEDS: amLODIPine 5 MG TABLET PO SCH (09:49)
[2018-01-26 11:45] VITALS: BP 123/69
== END 2018-01-26 14:50 | disposition swing bed (61) | DRG 207 ==
LOC: SUATTDRO 14:41 → N.CC 14:41 → N.TELES 01-22 17:27
PROVIDERS: ADMIT Internal Medicine; ATTEND Hospitalist
PROC: CLCCHCL (ICD-10-PCS; 2018-01-19 12:15)